=== PATIENT | female | born 1935 | race Caucasian/White ===

== ENCOUNTER → 2017-03-04 | Outpatient (CLI) | payer OTHER, MEDICARE | LOC: RAD 07:40 | DX: Z12.31 Encounter for screening mammogram for malignant neoplasm of breast (principal) ==

== ENCOUNTER → 2018-04-14 | Outpatient (CLI) | payer OTHER, MEDICARE | LOC: RAD 01:19 | DX: Z12.31 Encounter for screening mammogram for malignant neoplasm of breast (principal) ==

== ENCOUNTER → 2019-04-19 | Outpatient (CLI) | payer OTHER, MEDICARE | LOC: RAD 01:21 | DX: Z12.31 Encounter for screening mammogram for malignant neoplasm of breast (principal) ==

== ENCOUNTER → 2020-05-08 | Outpatient (CLI) | payer OTHER, MEDICARE | LOC: BC 13:33 | DX: Z12.31 Encounter for screening mammogram for malignant neoplasm of breast (principal) ==

== ENCOUNTER → 2021-06-12 | Outpatient (CLI) | payer OTHER, MEDICARE | LOC: BC 13:59 | PROVIDERS: ATTEND Family Medicine | DX: Z12.31 Encounter for screening mammogram for malignant neoplasm of breast (principal); N64.89 Other specified disorders of breast ==

== ENCOUNTER → 2021-06-15 | Outpatient (CLI) | payer OTHER, MEDICARE | LOC: ULTRA 10:28 | PROVIDERS: ATTEND Family Medicine | DX: N63.22 Unspecified lump in the left breast, upper inner quadrant (principal); R92.2 Inconclusive mammogram ==

== ENCOUNTER → 2021-06-22 | Outpatient (CLI) | payer OTHER, MEDICARE ==
--- NOTE | 2021-06-25 15:07 | PATH ---
[facility] [address] [place] [address] PATHOLOGY RPT PROCEDURE Name: DARBYVALERIE Room #: REG [facility] MMally.#: [id number] Admission: 06/22/21 Date of : 39 Discharge: Report #: [id number] Path Case #: [id number] [facility] Accession Number: [id number] . 01 Material submitted: . breast - LEFT BREAST MASS 10 O'CLOCK 4CM FN. Modifiers: left, 10:00, 4CM FN . 01 Clinical history: . COLLECTED 10:25AM FORMALIN 10:25AM US/ GUIDED BIOPSY/ LT BREAST MASS . 02 Diagnosis: Left breast mass at 10:00, 4 cm from the nipple, ultrasound guided needle biopsies: - Invasive ductal carcinoma, grade II. . CANCER CASE SYNOPTIC REPORT Procedure ___ Needle biopsy . Specimen Laterality ___ Left . TUMOR . +Tumor Site ___ Clock position Specify Clock Position ___ 10 o'clock ___ Specify distance from nipple in Centimeters (cm): 4 cm . Histologic Type ___ Invasive carcinoma of no special type (ductal) . Histologic Grade (Britton Histologic Score) Glandular (Acinar) / Tubular Differentiation ___ Score 3 (less than 10% of tumor area forming glandular / tubular structures) Nuclear Pleomorphism ___ Score 2 (Cells larger than normal with open vesicular nuclei, visible nucleoli, and moderate variability in both size and shape) Mitotic Rate ___ Score 1 Overall Grade ___ Grade 2 (scores of 6 or 7) +Tumor Size ___ Greatest dimension of largest invasive focus greater than 1 mm: [address] [facility] [address] [place] [address] PATHOLOGY RPT PROCEDURE Name: VALERIE DARBY Room #: REG CLJusto Gonzalez.#: [id number] Admission: 06/22/21 Date of : 39 Discharge: Report #: [id number] Path Case #: [id number] . Ductal Carcinoma In Situ (DCIS) ___ Not identified . +Lymphovascular Invasion ___ Not identified . +Microcalcifications (Note D) ___ Present in non-neoplastic tissue . ADDITIONAL FINDINGS . +Additional Findings: None . SPECIAL STUDIES . +Breast Biomarker Studies (specify pending studies): Pending studies on A1 . (AK:bessie; 06/25/2021) QTP 06/25/2021 1225 Local . 02 Comment: Isabel Purcell notified by Dr. Rubalcava on 06/25/2021 at 12:30pm. (AK:pit; 06/25/2021) . 02 Electronically signed: . Violeta Rubalcava MD, Pathologist NPI- [id number] . 01 Gross description: . The specimen is received in formalin, labeled "Valerie Darby, Lt breast 10 o'clock 4cmFN" and consists of 3 fibrofatty cylindrical tissues ranging in length from 1.0 cm to 1.2 cm and each averaging 0.2 cm in diameter. The specimen is submitted in toto in A1-A3. The cold ischemic time is less than 60 seconds. The total time in formalin is 9 hours.([facility]; 06/22/2021) DKA/DKA 06/22/2021 1602 Local . 02 Pathologist provided ICD-10: C50.912 . 02 CPT . 735304 Specimen Comment: A courtesy copy of this report has been sent to [phone] Specimen Comment: [phone] Specimen Comment: Report sent to ,[place] [address] PATHOLOGY RPT PROCEDURE Name: VALERIE DARBY Room #: REG LUIS Rashid#: [id number] Admission: 06/22/21 Date of : 39 Discharge: Report #: [id number] Path Case #: [id number] Performed at: [address], [place], [place] [id number] MD Raymundo Argueta MD Phone: [phone] Performed at: [address] [place] [address], [place], [place] [id number] MD Gaby Allen MD Phone: [phone]
== END | disposition home or self-care (01) ==
LOC: ULTRA 09:08
PROVIDERS: ATTEND Family Medicine
DX: C50.912 Malignant neoplasm of unspecified site of left female breast (principal); R92.1 Mammographic calcification found on diagnostic imaging of breast